=== PATIENT | female | born 1930 | race Caucasian/White ===

== ENCOUNTER → 2016-05-31 | Outpatient (REF) | payer MEDICARE, OTHER ==
[2016-05-31 12:35] LABS: BASOPHILS % (AUTO) 0 % (0-2); EOSINOPHILS % (AUTO) 0 % (0-4); LYMPHOCYTES # (AUTO) 1.3 X10^3; MEAN CORPUSCULAR HGB CONC 31.9 g/dL (31.0-37.0); MONOCYTES # (AUTO) 0.7 X10^3; MONOCYTES % (AUTO) 7 % (3-11); NEUTROPHILS # (AUTO) 7.9 X10^3; NEUTROPHILS % (AUTO) 79 % (51-67); PLATELET COUNT 519 10^3uL (150-450); WHITE BLOOD COUNT 10.06 10^3uL (4.0-11.0)
[2016-05-31 12:38] LABS: MEAN CORPUSCULAR HEMOGLOBIN 23.5 PG (26.0-34.0); MEAN CORPUSCULAR VOLUME 74 FL (80-100)
== END ==
LOC: LAB 11:25
PROVIDERS: ATTEND Family Medicine
DX: E11.9 Type 2 diabetes mellitus without complications (principal); D63.8 Anemia in other chronic diseases classified elsewhere
CPT/HCPCS: 83036; 85025

== ENCOUNTER → 2016-06-06 | Outpatient (CLI) | payer MEDICARE, OTHER ==
[~2016-06-06] MED LIST: AMLO10TA82 PO; ASPI-860 PO; ATOR80TA PO; DOCU100T7 PO; FOLI0.4T2 PO; GLPZ5TCR PO; GLUC-132 PO; HCT25T PO; LANS15CA16 PO; LEVO75TA4 PO; LOSA100T8 PO; LUTE20TA PO; MAGN250T7 PO; METF1000 PO; METO100T2 PO; POTA10TA10 PO; [UNRECOGNIZED DRUG - OTHER] PO
== END ==
LOC: LAB 14:31
PROVIDERS: ATTEND Family Medicine
DX: E11.9 Type 2 diabetes mellitus without complications (principal)
CPT/HCPCS: 36415; 83036